=== PATIENT | male | born 1970 | race Caucasian/White ===

== ENCOUNTER → 2017-08-29 08:03 | Outpatient (CLI) | payer MEDICAID, SELFPAY ==
[2017-08-29 09:53] LABS: Alanine Aminotransferase 43 U/L (12-78); Albumin Level 3.6 gm/dL (3.4-5.0); Albumin/Globulin Ratio 1.2 (1.1-1.8); Alkaline Phosphatase 132 U/L (46-116); Anion Gap 12.6 mEq/L (5-15); Aspartate Amino Transferase 19 U/L (15-37); Bilirubin,Total 0.3 mg/dL (0.2-1.0); Blood Urea Nitrogen 20 mg/dL (7-18); Calcium 9.1 mg/dL (8.5-10.1); Carbon Dioxide 27 mmol/L (21.0-32.0); Chloride 106 mmol/L (98-107); Chol/HDL Ratio 7.4 (1-3.5); Cholesterol 206 mg/dL (140-200); Creatinine,Serum 0.76 mg/dL (0.70-1.30); Estimated Glomerular Filt Rate 109 ml/min (>60); GFR (African American) 132 ML/MIN (>60); Glucose 120 mg/dL (74-106); HDL Cholesterol 28 mg/dL (27-67); LDL Cholesterol 129 mg/dL (0-130); Potassium 4.6 mmoL/L (3.5-5.1); Sodium 141 mmol/L (136-145); Total Protein,Serum 6.6 gm/dL (6.4-8.2); Triglycerides 243 mg/dL (30-200); VLDL Cholesterol 49 mg/dL (0-40)
[2017-08-29 10:03] LABS: Hemoglobin A1C 6.5 % (0.0-7.0)
== END ==
PROVIDERS: Visit Provider Nurse Practitioner Family
DX: E78.5 Hyperlipidemia, unspecified (principal); E11.9 Type 2 diabetes mellitus without complications
CPT/HCPCS: 36415; 80053; 80061; 83036

== ENCOUNTER 2017-12-31 10:45 | Outpatient (CLI) | payer MEDICAID, SELFPAY ==
[2017-12-31 11:25] VITALS: BP 118/80; PULSE 61; RESP 18; TEMP 36.3; O2SAT 100
== END 2017-12-31 12:20 | disposition home or self-care (01) ==
LOC: INF 10:47
PROVIDERS: PCP Internal Medicine Adolescent Medicine; Visit Provider Internal Medicine Adolescent Medicine
DX: Z23 Encounter for immunization (principal)
CPT/HCPCS: 90715; 96372

== ENCOUNTER → 2018-05-08 11:24 | Outpatient (CLI) | payer MEDICAID, SELFPAY ==
--- NOTE | 2018-05-08 11:33 | XR_ITS ---
XR foot RT min 3V HISTORY: ITS.REASON: INTRACTABLE RT HEEL PAIN ORDERING PHYSICIAN: Dominic Fields MD PATIENT AGE: 47 years COMPARISON: None FINDINGS: No fracture or dislocation. No lytic or blastic change. There is normal mineralization.. The joint spaces are well-preserved. No significant degenerative/arthritic changes. No erosive changes evident. There is a small calcaneal spur present. No erosive changes. No radiopaque foreign bodies. IMPRESSION: Negative foot, no acute finding
== END ==
PROVIDERS: PCP Internal Medicine Adolescent Medicine; Visit Provider Internal Medicine Adolescent Medicine
DX: M79.671 Pain in right foot (principal)
CPT/HCPCS: 73630

== ENCOUNTER → 2018-05-27 16:33 | Outpatient (CLI) | payer MEDICAID, SELFPAY ==
--- NOTE | 2018-05-27 16:36 | MR_ITS ---
MR foot RT wo con CLINICAL INDICATION: Injury with pain ITS.REASON: INTRACTABLE RIGHT HEEL PAIN ORDERING PHYSICIAN: Dominic Fields MD PATIENT AGE: 47 years Comparison: 05/08/2018 TECHNIQUE: Standard multiplanar multiecho sequences are without contrast. FINDINGS: No obvious fracture or dislocation. No ligamentous injury or tear. No ligamentous or tendon injury apparent. No abnormal fluid collections. There is a small area of increased T2 signal involving the medial aspect of the calcaneus suggesting a small area of bone marrow edema and could be related to a small contusion. The plantar fascia does appear intact. No other significant anomalies are evident. IMPRESSION: 1. Small area of bone marrow edema involving the medial aspect of the calcaneus along the plantar surface. This could be due to a small bone bruise or focal inflammation from plantar fasciitis. 2. Otherwise negative MRI of the right
== END ==
PROVIDERS: PCP Internal Medicine Adolescent Medicine; Visit Provider Internal Medicine Adolescent Medicine
DX: M79.671 Pain in right foot (principal)
CPT/HCPCS: 73718

== ENCOUNTER → 2019-12-17 07:05 | Outpatient (CLI) | payer OTHER, SELFPAY ==
[2019-12-17 08:27] LABS: Basophils # 0.1 K/mm3 (0-0.2); Basophils % 0.6 % (0.1-2.0); Eosinophils # 0.2 K/mm3 (0.0-0.4); Hematocrit 42.9 % (42.0-52.0); Hemoglobin 14.2 g/dL (14.1-18.0); Lymphocytes # 3.1 K/mm3 (0.7-4.5); Lymphocytes % 36.8 % (10-50); Mean Corpuscular Hemoglobin 31.9 pg (27.0-31.2); Mean Corpuscular Volume 96.7 fl (80-94); Mean Platelet Volume 7.5 fl (7.4-10.4); Monocytes # 0.5 K/mm3 (0.1-1.0); Monocytes % 6.4 % (1.7-9.3); Neutrophils # 4.6 K/mm3 (1.8-7.8); Neutrophils % 54.2 % (37.0-80.0); Platelet Count 364 K/mm3 (142-424); Red Blood Count 4.44 M/mm3 (4.60-6.20); White Blood Count 8.4 K/mm3 (4.8-10.8)
[2019-12-17 08:50] LABS: Microalbumin/Creatinine Ratio 11.1
[2019-12-17 08:57] LABS: Chloride 104 mmol/L (98-107)
[2019-12-17 08:58] LABS: Potassium 4.8 mmoL/L (3.5-5.1); Sodium 140 mmol/L (136-145)
[2019-12-17 09:00] LABS: Alanine Aminotransferase 19 U/L (12-78); Albumin/Globulin Ratio 1.5 (1.1-1.8); Alkaline Phosphatase 91 U/L (38-126); Anion Gap 12.8 mEq/L (5-15); Aspartate Amino Transferase 24 U/L (17-59); Bilirubin,Total 0.6 mg/dl (0.2-1.3); Blood Urea Nitrogen 18 mg/dl (9-20); Calcium 9.7 mg/dl (8.4-10.2); Carbon Dioxide 28 mmol/L (22.0-30.0); Cholesterol 196 mg/dl (140-200); Creatinine,Urine Random 118 mg/dL (Not Estab.); Estimated Glomerular Filt Rate 102 ml/min (>60); GFR (African American) 124 ML/MIN (>60); Globulin 2.6 g/dL (1.3-3.2); Glucose 110 mg/dl (74-100); Total Protein,Serum 6.6 g/dl (6.3-8.2); Triglycerides 148 mg/dl (30-150); VLDL Cholesterol 30 mg/dL (0-40)
[2019-12-17 09:01] LABS: Chol/HDL Ratio 5.9 (1-3.5); HDL Cholesterol 33 mg/dl (40-60); Hemoglobin A1C 6.2 % (4.0-6.0)
[2019-12-17 09:12] LABS: Direct LDL Cholesterol 123.65 mg/dL (100-129)
[2019-12-17 09:31] LABS: Thyroid Stimulating Hormone 1.82 uIU/mL (0.465-4.68)
[2019-12-17 10:54] LABS: Vitamin B12 343 pg/mL (239-931)
== END ==
PROVIDERS: Visit Provider Nurse Practitioner Family
DX: E78.5 Hyperlipidemia, unspecified (principal); E11.9 Type 2 diabetes mellitus without complications; R25.9 Unspecified abnormal involuntary movements; J44.9 Chronic obstructive pulmonary disease, unspecified; Z79.84 Long term (current) use of oral hypoglycemic drugs
CPT/HCPCS: 36415; 80053; 80061; 82043; 82570; 82607; 83036; 84443; 85025

== ENCOUNTER → 2020-09-23 07:09 | Outpatient (CLI) | payer OTHER, SELFPAY ==
[2020-09-23 07:22] LABS: Basophils # 0.1 K/mm3 (0-0.2); Basophils % 0.7 % (0.1-2.0); Eosinophils # 0.2 K/mm3 (0.0-0.4); Eosinophils % 1.9 % (0.1-12.0); Hematocrit 42.9 % (42.0-52.0); Hemoglobin 13.9 g/dL (14.1-18.0); Lymphocytes % 32.1 % (10-50); Mean Corpuscular HGB Conc 32.4 g/dL (31.8-35.4); Mean Corpuscular Volume 95.8 fl (80-94); Mean Platelet Volume 7.3 fl (7.4-10.4); Monocytes # 0.5 K/mm3 (0.1-1.0); Monocytes % 5.4 % (1.7-9.3); Neutrophils # 5.6 K/mm3 (1.8-7.8); Neutrophils % 59.9 % (37.0-80.0); Platelet Count 384 K/mm3 (142-424); Red Blood Count 4.48 M/mm3 (4.60-6.20); Red Cell Distribution Width 12.9 % (11.5-17.5); White Blood Count 9.4 K/mm3 (4.8-10.8)
[2020-09-23 07:39] LABS: Hemoglobin A1C 5.8 % (4.0-6.0)
[2020-09-23 08:20] LABS: Chloride 103 mmol/L (98-107); Sodium 138 mmol/L (136-145)
[2020-09-23 08:22] LABS: Alanine Aminotransferase 20 U/L (12-78); Aspartate Amino Transferase 21 U/L (17-59); Blood Urea Nitrogen 18 mg/dl (9-20); Estimated Glomerular Filt Rate 102 ml/min (>60); GFR (African American) 123 ML/MIN (>60)
[2020-09-23 08:23] LABS: Albumin Level 4.3 g/dl (3.5-5.0); Albumin/Globulin Ratio 1.9 (1.1-1.8); Alkaline Phosphatase 86 U/L (38-126); Bilirubin,Total 0.2 mg/dl (0.2-1.3); Calcium 9.1 mg/dl (8.4-10.2); Carbon Dioxide 27 mmol/L (22.0-30.0); Cholesterol 141 mg/dl (140-200); Globulin 2.3 g/dL (1.3-3.2); Glucose 144 mg/dl (74-100); Total Protein,Serum 6.6 g/dl (6.3-8.2); Triglycerides 114 mg/dl (30-150); VLDL Cholesterol 23 mg/dL (0-40)
[2020-09-23 08:24] LABS: Chol/HDL Ratio 3.8 (1-3.5); HDL Cholesterol 37 mg/dl (40-60)
[2020-09-23 09:18] LABS: Prostate Specific Ag Screen 1.1 ng/ml (0.0-4.0)
== END ==
PROVIDERS: Visit Provider Nurse Practitioner Family
DX: E11.9 Type 2 diabetes mellitus without complications (principal); I10 Essential (primary) hypertension; E78.5 Hyperlipidemia, unspecified; Z72.0 Tobacco use; Z79.84 Long term (current) use of oral hypoglycemic drugs; Z80.42 Family history of malignant neoplasm of prostate; Z12.5 Encounter for screening for malignant neoplasm of prostate
CPT/HCPCS: 36415; 80053; 80061; 83036; 85025; G0103

== ENCOUNTER → 2020-09-24 12:09 | Outpatient (CLI) | payer OTHER, SELFPAY ==
--- NOTE | 2020-09-24 12:14 | CT_ITS ---
PROCEDURE INFORMATION: Exam: CT Chest Without and With Contrast; Diagnostic Exam date and time: 09/24/2020 12:14 PM Age: 49 years old Clinical indication: Other: ? Mass; Additional info: Mass of upper lobe of lt lung TECHNIQUE: Imaging protocol: Diagnostic computed tomography of the chest without and with contrast. Radiation optimization: All CT scans at this facility use at least one of these dose optimization techniques: automated exposure control; mA and/or kV adjustment per patient size (includes targeted exams where dose is matched to clinical indication); or iterative reconstruction. Contrast material: ISOVUE 370; Contrast volume: 75 ml; Contrast route: IV; COMPARISON: No relevant prior studies available. FINDINGS: Lungs: No pulmonary masses. The lungs are hyperinflated, consistent with underlying small airways disease. Granulomatous densities noted within the lung bases. Pleural spaces: There is no evidence of pneumothorax. There are no pleural effusions present. Heart: There is mild to moderate atherosclerotic calcification of the coronary arteries. Aorta: Unremarkable. No aortic aneurysm. Lymph nodes: There is no evidence of mediastinal or hilar lymphadenopathy. Calcified left hilar lymph nodes present likely related to granulomatous changes. Bones/joints: The thoracic spine demonstrates mild degenerative changes at multiple levels. Soft tissues: Unremarkable. IMPRESSION: 1. No pulmonary masses. 2. The lungs are hyperinflated, consistent with underlying small airways disease. 3. Calcified left hilar lymph nodes present likely related to granulomatous changes. 4. There is mild to moderate atherosclerotic calcification of the coronary arteries. Further evaluation is recommended.
== END ==
PROVIDERS: PCP Internal Medicine Adolescent Medicine; Visit Provider Internal Medicine Adolescent Medicine
DX: R91.8 Other nonspecific abnormal finding of lung field (principal)
CPT/HCPCS: 71270; Q9967

== ENCOUNTER 2023-07-12 10:41 | Outpatient (CLI) | payer OTHER, SELFPAY ==
--- NOTE | 2023-07-12 10:50 | CT_ITS ---
FINAL REPORT TECHNIQUE: Axial images were obtained from the lung apex to the mid abdomen by computed tomography. This study was performed with techniques to keep radiation doses as low as reasonably achievable (ALARA). Individualized dose reduction techniques using automated exposure control or adjustment of mA and/or kV according to the patient's size were employed. CLINICAL HISTORY: TOBACCO USE smoker 1.5 ppd x 30 years COMPARISON: 09/24/2020 FINDINGS: CHEST CT LOW DOSE CTDI vol (mGy): 2.90 DLP (mGy-cm): 117.50 There is no axillary adenopathy. There is no hilar or mediastinal adenopathy. The heart is normal in size. There is no pericardial or pleural effusion. Lung window images demonstrate a 2 mm nodule in the right lower lobe well seen on image 48 of series 4. Limited images of the upper abdomen are unremarkable. IMPRESSION: Which Right lower lobe nodule. Lung RADS category 2. Recommend 12 month follow-up low-dose chest CT. Reviewed, Interpreted and Dictated by Cem Herrera MD Transcribed by Jackelyn Siddiqui Authenticated and [facility]
== END 2023-07-12 23:59 ==
LOC: RAD 10:41
PROVIDERS: PCP Internal Medicine Adolescent Medicine; Visit Provider Nurse Practitioner Family
DX: Z72.0 Tobacco use (principal)
CPT/HCPCS: 71271

== ENCOUNTER 2023-08-08 07:55 | Outpatient (CLI) | payer OTHER, SELFPAY ==
--- NOTE | 2023-08-08 08:04 | XR_ITS ---
FINAL REPORT CLINICAL HISTORY: heel pain FINDINGS: Right foot Three views were obtained. There is no acute fracture or dislocation. There are mild hypertrophic changes at the 1st metatarsophalangeal joint. No soft tissue abnormality is identified. There is a small to moderate plantar spur. IMPRESSION: Small to moderate plantar spur. Reviewed, Interpreted and Dictated by Cem Herrera MD Transcribed by Jackelyn Siddiqui Authenticated and [facility]
--- NOTE | 2023-08-08 08:04 | XR_ITS ---
FINAL REPORT CLINICAL HISTORY: heel pain FINDINGS: Left foot Three views were obtained. There is no acute fracture or dislocation. There are mild hypertrophic changes at the 1st interphalangeal joint. No soft tissue abnormality is identified. There is a small plantar spur. IMPRESSION: Small plantar spur. Reviewed, Interpreted and Dictated by Cem Herrera MD Transcribed by Jackelyn Siddiqui Authenticated and [facility]
== END 2023-08-08 23:59 | disposition home or self-care (01) ==
LOC: RAD 07:56
PROVIDERS: PCP Internal Medicine Adolescent Medicine; Visit Provider Nurse Practitioner
DX: M79.671 Pain in right foot (principal); M79.672 Pain in left foot
CPT/HCPCS: 73630

== ENCOUNTER 2023-08-29 15:02 | Outpatient (CLI) | payer OTHER, SELFPAY ==
--- NOTE | 2023-08-29 15:07 | MR_ITS ---
FINAL REPORT CLINICAL HISTORY: TRIGEMINAL NEURALGIA. OTALGIA, LEFT EAR. LT SIDED FACE PAIN FINDINGS: Multiplanar MR imaging of the brain was performed without and with contrast. Motion artifact is identified on some of the images. There is no evidence of intracranial hemorrhage or mass. No abnormal extra-axial fluid collection is seen. The ventricular size is within normal limits. There is no evidence of shift of the midline structures. The posterior fossa and brainstem have an unremarkable appearance. No area of abnormal restricted diffusion is identified. No abnormal contrast enhancement is seen. Normal major vessel vascular flow voids are noted. There is a retention cyst or polyp in the left maxillary sinus. IMPRESSION: No acute intracranial abnormality identified. Reviewed, Interpreted and Dictated by Michelet Vazquez III, MD Transcribed by Jackelyn Siddiqui Authenticated and [facility]
== END 2023-08-29 23:59 | disposition home or self-care (01) ==
LOC: RAD 15:03
PROVIDERS: PCP Nurse Practitioner Family; Visit Provider Nurse Practitioner Family
DX: G50.0 Trigeminal neuralgia (principal); H92.02 Otalgia, left ear; R51.9 Headache, unspecified
CPT/HCPCS: 70553

== ENCOUNTER 2023-12-04 07:45 | Outpatient (CLI) | payer OTHER, SELFPAY ==
--- NOTE | 2023-12-04 | CA_ITS ---
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 121.0 (50-130 cm/s) AO Peak GR. 5.80 mmHg AO Mean GR. 2.90 (<5 mmHg) AO VTI 27.9 (18-25 cm) SILVIA (VTI) 2.22 (2.5-4.5 cm2) Mitral Valve MV A Velocity 51.0 (40-130 cm/s) E/A Ratio 1.31 Pulmonary Valve PV Peak Velocity 98.0 (50-150 cm/s) Tricuspid Valve TR P. Velocity 156.00 cm/s RAP Estimate 10.00 mmHg RVSP 19.70 mmHg Left Ventricle The left ventricle is normal size. The left ventricular systolic function is normal. The left ventricular ejection fraction is within the normal range. There is normal left ventricular wall thickness. There is normal LV segmental wall motion. The left ventricular diastolic function is normal. LVEF is 55%. Right Ventricle Right ventricle is mildly dilated. The right ventricular systolic function is normal. Atria The left atrium size is normal. The right atrium size is normal. There is no Doppler evidence of interatrial shunt. Aortic Valve The aortic valve is mildly thickened. There is no aortic valvular stenosis. Trace aortic regurgitation. Mitral Valve The mitral valve is normal in structure. No evidence of mitral valve stenosis. Trace mitral valve regurgitation noted. Tricuspid Valve The tricuspid valve leaflets are thin and pliable. Trace tricuspid regurgitation. There is insufficient TR jet to estimate RVSP. Pulmonic Valve The pulmonary valve is normal in structure. Trace pulmonic regurgitation. Great Vessels The aortic root is normal in size. The ascending aorta is normal in size. IVC is normal in size and collapses >50% with inspiration. Pericardium There is no pericardial effusion. Other Information Study Quality: Fair Conclusion Normal biventricular systolic function. Mild RV dilation. No significant valvular stenosis or regurgitatoin. Electronically signed by : Linda Domínguez MD 12/05/2023 10:35:53
== END 2023-12-04 23:59 | disposition home or self-care (01) ==
LOC: RT 07:46
PROVIDERS: PCP Nurse Practitioner Family; Visit Provider Nurse Practitioner Family
DX: R42 Dizziness and giddiness (principal); Z86.79 Personal history of other diseases of the circulatory system
CPT/HCPCS: 93306

== ENCOUNTER 2024-12-05 06:36 | Outpatient (CLI) | payer OTHER, BC, SELFPAY ==
--- NOTE | 2024-12-05 06:44 | CT_ITS ---
FINAL REPORT TECHNIQUE: Thin section axial images were obtained from the lung apices to the upper abdomen by computed tomography. Reformatted images were obtained and reviewed. This study was performed with techniques to keep radiation doses al low as reasonably achievable (ALARA). Individualized dose reduction techniques using automated exposure control or adjustment of mA and/or kV according to the patient's size were employed. CLINICAL HISTORY: SCREENING.SMOKER. 2PPD FOR 40 YEARS. FAMILY HX LUNG CANCER. COMPARISON: 07/12/2023 FINDINGS: CHEST CT LOW DOSE 54-year-old male, current smoker, [id number] history. CTDI vol (mGy): 2.90 DLP (mGy-cm): 108.64 There is no axillary adenopathy. There is no mediastinal or hilar mass or adenopathy. The heart is normal in size. Moderate coronary artery calcifications are present. There is no pericardial or pleural effusion. Lung window images demonstrate no suspicious infiltrate or nodule. The previously seen 2 mm right lower lobe nodule is no longer visualized. Limited images of the upper abdomen are unremarkable. IMPRESSION: Lung-RADS category 1. Recommend 12 month follow up low dose chest CT. Reviewed, Interpreted and Dictated by Cem Herrera MD Transcribed by Vandana Mike Authenticated and [facility]
== END 2024-12-05 23:59 | disposition home or self-care (01) ==
LOC: RAD 06:37
PROVIDERS: PCP Nurse Practitioner Family; Visit Provider Nurse Practitioner Family
DX: Z13.9 Encounter for screening, unspecified (principal); Z87.891 Personal history of nicotine dependence; Z80.1 Family history of malignant neoplasm of trachea, bronchus and lung
CPT/HCPCS: 71271